=== PATIENT | male | born 1990 | race Two or more races ===

== ENCOUNTER 2017-03-14 14:15 | Emergency (ER) | payer OTHER ==
[2017-03-14 14:38] VITALS: BP 131/68; PULSE 80; RESP 18; TEMP 97.7; O2SAT 97
--- NOTE | 2017-03-14 15:15 | EDPHY ---
H & P Time Seen by Provider: 03/14/17 15:02 HPI/ROS: This patient is [place]-speaking only accompanied by a friend who translates. He was bitten by an insect or stung by a bee-he is uncertain to the dorsum of left hand yesterday and he has had significant increase in redness and swelling since that time. He has associated itching and mild burning discomfort. The area of erythema has been extending throughout the day from its initial small area to now covering the dorsum of the hand extending up to the wrist. ROS: No fevers or other constitutional symptoms HEENT: No facial swelling Pulmonary: No wheezing or shortness of breath Cardiovascular: No lightheadedness or heart palpitations GI: No nausea vomiting 5 point ROS is otherwise negative. Past Medical/Surgical History: Otherwise healthy Smoking Status: Light smoker Physical Exam: Physical Exam Vital signs are normal. General: Pleasant male No acute distress HEENT: No facial swelling. No stridor or dysphonia. Eyes: Pupils equal and react to light. Extraocular motions are intact. Lungs: No respiratory distress. Cardiac: Brisk capillary refill is intact throughout. Pulses are 2+ and symmetric in the affected extremity. Skin: There is erythema to the dorsum of the hand extends to the wrist. There is significant warmth to touch. There is associated moderate edema. No fluctuance. No foreign bodies and close inspection. Neuro: Alert and oriented with no sensorimotor deficits to the affected extremity. Initial differential diagnosis: Hymenoptera sting with allergic response, cellulitis, non Hymenoptera insect bite with cellulitis Constitutional: Initial Vital Signs Temperature (C) 36.5 C 03/14/17 14:34 Heart Rate 80 03/14/17 14:34 Respiratory Rate 18 03/14/17 14:34 Blood Pressure 131/68 H 03/14/17 14:34 O2 Sat (%) 97 03/14/17 14:34 O2 Delivery Mode Room Air Allergies/Adverse Reactions: No Known Allergies Allergy (Verified 03/14/17 14:32) Home Medications: Medication Instructions Recorded Cephalexin [Keflex (*)] 500 mg PO QID #40 cap 03/14/17 Omeprazole 03/14/17 MDM/Departure - MDM ED Course/Re-evaluation: Given significant warmth to touch and extending erythema, I think it is likely this patient has cellulitis complicating his insect bite or Hymenoptera sting. I counseled him regarding this. We will treat him with Keflex antibiotic, ibuprofen and antihistamines. No evidence of anaphylaxis, sepsis or other complicating factors. - Depart Disposition: Home, Routine, Self-Care Clinical Impression: Cellulitis of hand, right Insect bite Qualifiers: Encounter type: initial encounter Qualified Code(s): W57.XXXA - Bitten or stung by nonvenomous insect and other nonvenomous arthropods, initial encounter Condition: Good Instructions: Cellulitis (ED) Additional Instructions: =Diagnosis: Insect bite to hand with associated cellulitis Plan: Loratadine for itching during the day and Benadryl for itching at night new Ibuprofen for pain and swelling as needed Keflex antibiotic for 10 days Return for any significant worsening despite treatment plan Prescriptions: Cephalexin [Keflex (*)] 500 mg PO QID #40 cap Referrals: NONE *PRIMARY CARE P,. [Primary Care Provider] - As per Instructions
== END 2017-03-14 15:30 | disposition home or self-care (01) ==
LOC: CED 14:15
DX: L03.114 Cellulitis of left upper limb (principal); F17.200 Nicotine dependence, unspecified, uncomplicated; W57.XXXA Bitten or stung by nonvenomous insect and other nonvenomous arthropods, initial encounter